=== PATIENT | male | born 1965 | race Caucasian/White ===

== ENCOUNTER 2021-03-23 16:53 | Emergency (ER) | payer BC ==
[~2021-03-23] VITALS: Ht 195.6 cm; Wt 81.0 kg
--- NOTE | 2021-03-23 17:12 | PHYS DOC ---
Past History Past Medical History: No Pertinent History Adult General Chief Complaint Chief Complaint: MECHANICAL FALL HPI HPI Patient is a 55-year-old male presenting for right lateral ankle pain. Onset was just prior to arrival. Was on the job, reports jumping off of a approximately 6 foot security fence and landing awkwardly on his right ankle suffering an inversion type injury as he thinks he landed on the stump of a tree. Did not hear any pops or cracks. Reported immediate pain to right lateral ankle and pain with weightbearing. Patient was ambulatory and able to call for help and be transported to our facility for evaluation. Reports focal sharp pain that is 10/10 in severity to right lateral ankle without radiation. Did not hit head, no loss of consciousness, no blood thinners, denies any significant medical issues or known diagnosed conditions. No changes in motor, sensory or neurologic function Review of Systems Review of Systems Fourteen body systems of review of systems have been reviewed. See HPI for pertinent positives and negative responses, other liang all other systems are negative, non-pertinent or non-contributory Physical Exam Physical Exam Constitutional: Well developed, well nourished, no acute distress, non-toxic appearance. HENT: Normocephalic, atraumatic, bilateral external ears normal, oropharynx moist, no oral exudates, nose normal. Eyes: PERRLA, EOMI, conjunctiva normal, no discharge. Neck: Normal range of motion, no tenderness, supple, no stridor. Cardiovascular: Heart rate regular per monitor Lungs & Thorax: No respiratory distress or accessory muscle use, bilateral chest rise Abdomen: Abdomen soft, non-tender, bowel sounds present in all quadrants, no guarding or rebound, nonacute abdomen. Skin: Warm, dry, no erythema, no rash. Back: No tenderness, no CVA tenderness. Extremities: Tenderness present to right lateral ankle with tenderness to palpation at right lateral malleolus and base of right fifth metatarsal with this soft tissue swelling over ATF ligaments, is able to bear weight but has antalgic gait due to pain, remaining work-up of right lower extremity involving hip, knee, soft tissue compartments of right goyal etc. unremarkable Neurologic: Alert and oriented X 3, grossly normal motor & sensory function, no focal deficits noted. Psychologic: Affect normal, judgement normal, mood normal. Current Patient Data Vital Signs Vital Signs Date Time Temp Pulse Resp B/P (MAP) Pulse Ox O2 Delivery O2 Flow Rate FiO2 03/23/21 17:21 16 99 Vital Signs Date Time Temp Pulse Resp B/P (MAP) Pulse Ox O2 Delivery O2 Flow Rate FiO2 03/23/21 17:21 16 99 EKG EKG [] Radiology/Procedures Radiology/Procedures EXAM: Right ankle and foot, 3 views. HISTORY: Pain. Inversion injury. COMPARISON: None. FINDINGS: 3 views of the right foot and ankle are obtained. There is no f racture, dislocation or subluxation. The ankle mortise intact. There is no osteochondral lesion. There is diffuse lateral predominant ankle soft tissue swelling. There is mild first metatarsal phalangeal joint spurring. There is a small calcification or foreign body along the lateral aspect of the forefoot. IMPRESSION: Lateral predominant ankle soft tissue swelling. No acute osseous finding. Electronically signed by: Dannielle Rivero MD (03/23/2021 5:22 PM) [id number] Heart Score C/O Chest Pain: No HEART Score for Chest Pain: HEART Score for Chest Pain Response (Comments) Value History Slighlty/Non-Suspicious 0 Age >45 - < 65 1 Total 1 Risk Factors: Risk Factors: DM, Current or recent (<one month) smoker, HTN, HLP, family history of CAD, obesity. Risk Scores: Risk Factors: DM, Current or recent (<one month) smoker, HTN, HLP, family history of CAD, obesity. Course & Med Decision Making Course & Med Decision Making Discussed with the patient all findings and diagnostic testing. I discussed most likely diagnosis of likely self-limiting musculoskeletal disease process such as strain/strain of right lateral ankle. I discussed no indication for further diagnostic work-up and/or intervention in ER setting. Continued supportive care and close outpatient follow-up advised. I stressed need for close outpatient follow-up to review today's ER visit. Strict return precautions were also discussed at length with good understanding by patient. Patient voiced understanding and agreement with the plan. Patient knows to come back for repeat evaluation if concerning signs or symptoms present prior to outpatient follow- up. Hemodynamically stable, ambulatory and well-appearing at time of disposition. Dragon Disclaimer Dragon Disclaimer This electronic medical record was generated, in whole or in part, using a voice recognition dictation system. Departure Departure: Impression: Primary Impression: Right ankle pain Disposition: HOME / SELF CARE / HOMELESS Condition: STABLE Patient Instructions: Ankle Exercises, Generic-SportsMed, RICE - Routine Care for Injuries Additional Instructions: You have been evaluated in the Emergency Department today for ankle pain. The x- ray of your ankle did not show any acute bony abnormalities. You can alternate Tylenol and/or Motrin every 4-6 hours to help control your pain. Please also rest, ice, and elevate your ankle to control your pain. Please follow up with your primary care physician as needed. If you do not have a primary doctor, you can call your insurance company to find one. If you do not have insurance, you can go to the finance/registration department for more assistance. Return to the Emergency Department if you experience worsening pain, numbness/tingling, change of color in your toes, or any other concerning symptoms. BOB HAYWOOD DO March 23, 2021 17:12
[2021-03-23] MEDS ORDERED: HYDROcodone/APAP 7.5/325MG 1 TAB TABLET ONE (17:19)
[2021-03-23] MEDS: HYDROcodone/APAP 7.5/325MG 1 TAB TABLET PO ONE (17:21)
--- NOTE | 2021-03-23 17:24 | RAD ---
EXAM: Right ankle and foot, 3 views. HISTORY: Pain. Inversion injury. COMPARISON: None. FINDINGS: 3 views of the right foot and ankle are obtained. There is no fracture, dislocation or subl uxation. The ankle mortise intact. There is no osteochondral lesion. There is diffuse lateral predomi nant ankle soft tissue swelling. There is mild first metatarsal phalangeal joint spurring. There is a small calcification or foreign body along the lateral aspect of the forefoot. IMPRESSION: Lateral predominant ankle soft tissue swelling. No acute osseous finding. Electronically signed by: Dannielle Rivero MD (03/23/2021 5:22 PM) [id number]
[2021-03-23 17:25] VITALS: BP 185/106
== END 2021-03-23 17:45 | disposition home or self-care (01) ==
LOC: ER 16:53
DX: M25.571 Pain in right ankle and joints of right foot (principal); R22.41 Localized swelling, mass and lump, right lower limb
CPT/HCPCS: 73610; 73630; 99284

== ENCOUNTER 2021-10-11 14:35 | Emergency (ER) | payer BC, OTHER ==
[~2021-10-11] VITALS: Ht 195.6 cm; Wt 82.0 kg
[2021-10-11] MEDS ORDERED: BUPIVACAINE MPF 0.25% 10 ML VIAL. IJ ONE (15:00)
[2021-10-11] MEDS ORDERED: LIDOCAINE 2% 20 ML VIAL. IJ ONE (15:00)
--- NOTE | 2021-10-11 15:09 | RAD ---
XR FINGER(S)_LEFT 2+VIEWS_RT History: Injury Comparison: None. Technique: AP and oblique views of the left hand with lateral view of the finger. Findings: Osseous mineralization is normal. No acute fracture or dislocaton. A tiny punctate metallic density p rojects in the soft tissues at the dorsal aspect of the left index finger at the level of the middle phalangeal base. There are mild degenerative changes of the interphalangeal and metacarpophalangeal j oints. No focal soft tissue swelling. Impression: 1. No acute osseous abnormality in the left hand. 2. Punctate metallic foreign body projecting at the level of the base of the index finger middle pha lanx dorsally. This may be superficial artifact or subcutaneous foreign body. Electronically signed by: Jose Almonte MD (10/11/2021 3:06 PM) [id number]
[2021-10-11 16:50] VITALS: BP 147/77
[2021-10-11] MEDS ORDERED: IBUP600T16 PO (16:51)
[2021-10-11] MEDS ORDERED: HYDR-2155 PO (16:51)
[2021-10-11] MEDS ORDERED: CEPH500C PO (16:51)
--- NOTE | 2021-10-11 16:52 | PHYS DOC ---
Past History Past Medical History: No Pertinent History Past Surgical History: No Surgical History Alcohol Use: Heavy General Adult EDM: Chief Complaint: FINGER INJURY HPI: HPI: Patient is a 56-year-old male that presents today with a laceration to his left hand fifth finger. Patient is left-hand dominant and works in a tire mounting job, patient states that he was working with a bobcat at work and he states he was moving it around and his finger got caught on a piece of equipment within the bobcat and he sustained a laceration to that area. Patient is able to extend and bend the finger he is limited due to pain, sensory intact distal to the injury no uncontrolled hemorrhaging noted Review of Systems: Review of Systems: Constitutional: Denies fever or chills Eyes: Denies change in visual acuity HENT: Denies nasal congestion or sore throat Respiratory: Denies cough or shortness of breath Cardiovascular: Denies chest pain or edema GI: Denies abdominal pain, nausea, vomiting, bloody stools or diarrhea : Denies dysuria Musculoskeletal: Laceration to left fifth finger Integument: Denies rash Neurologic: Denies headache, focal weakness or sensory changes Endocrine: Denies polyuria or polydipsia Lymphatic: Denies swollen glands Psychiatric: Denies depression or anxiety Current Medications: Current Meds: Current Medications Medications (Trade) Dose Ordered Sig/Lucien Start Time Stop Time Status Last Admin Dose Admin Bupivacaine HCl (Sensorcaine-Mpf 0.25%) 10 ml 1X ONCE 10/11/21 15:00 10/11/21 15:01 DC 10/11/21 15:05 10 ML Lidocaine HCl (Lidocaine 2%) 20 ml 1X ONCE 10/11/21 15:00 10/11/21 15:01 DC 10/11/21 14:56 20 ML Allergies: Allergies: Allergies Coded Allergies Type Severity Reaction Last Updated Verified No Known Drug Allergies 03/23/21 No Physical Exam: PE: Constitutional: Well developed, well nourished, no acute distress, non-toxic appearance. [] HENT: Normocephalic, atraumatic, bilateral external ears normal, oropharynx otilia st, no oral exudates, nose normal. [] Eyes: PERRLA, EOMI, conjunctiva normal, no discharge. [] Neck: Normal range of motion, no tenderness, supple, no stridor. [] Cardiovascular:Heart rate regular rhythm, no murmur [] Lungs & Thorax: Bilateral breath sounds clear to auscultation [] Abdomen: Bowel sounds normal, soft, no tenderness, no masses, no pulsatile masses. [] Skin: Warm, dry, no erythema, no rash. [] Back: No tenderness, no CVA tenderness. [] Extremities: Left fifth finger proximal to the tip, a Y-shaped laceration is noted approximately 3 cm x 1 cm, no uncontrolled hemorrhaging noted, patient's neurovascular intact distal to the injury. Neurologic: Alert and oriented X 3, normal motor function, normal sensory function, no focal deficits noted. [] Psychologic: Affect normal, judgement normal, mood normal. [] Current Patient Data: Vital Signs: Vital Signs Date Time Temp Pulse Resp B/P (MAP) Pulse Ox O2 Delivery O2 Flow Rate FiO2 10/11/21 14:40 98.5 95 20 180/106 (130) 96 EKG: EKG: [] Radiology/Procedures: Radiology/Procedures: REASON: INJURY PROCEDURE: FINGER(S) LEFT XR FINGER(S)_LEFT 2+VIEWS_RT History: Injury Comparison: None. Technique: AP and oblique views of the left hand with lateral view of the finger. Findings: Osseous mineralization is normal. No acute fracture or dislocaton. A tiny punctate metallic density projects in the soft tissues at the dorsal aspect of the left index finger at the level of the middle phalangeal base. There are mild degenerative changes of the interphalangeal and metacarpophalangeal joints. No focal soft tissue swelling. Impression: 1. No acute osseous abnormality in the left hand. 2. Punctate metallic foreign body projecting at the level of the base of the index finger middle phalanx dorsally. This may be superficial artifact or subcutaneous foreign body. Electronically signed by: Jose Almonte MD (10/11/2021 3:06 PM) [id number] Indication: Laceration to left fifth finger Procedure: Patient was placed in a sitting position left hand was cleansed by kobe huerta RN and copious amounts of irrigation was done approximately 1.5 L due to the dark on the patient's hand upon arrival. Digital block of lidocaine 2% with quarter percent bupivacaine completed, after finger is anesthetized 7 interrupted 4.0 Ethilon sutures were placed. Area was also debrided of any skin that was not viable. The patient tolerated the procedure well. Dressing of Adaptic, tube gauze, and an aluminum foam splint was placed on the patient. Total repaired wound length: 3 cm x 1 cm Complications: None Heart Score: C/O Chest Pain: N/A Risk Factors: Risk Factors: DM, Current or recent (<one month) smoker, HTN, HLP, family history of CAD, obesity. Risk Scores: Score 0 - 3: 2.5% MACE over next 6 weeks - Discharge Home Score 4 - 6: 20.3% MACE over next 6 weeks - Admit for Clinical Observation Score 7 - 10: 72.7% MACE over next 6 weeks - Early Invasive Strategies Course & Med Decision Making: Course & Med Decision Making Pertinent Labs and Imaging studies reviewed. (See chart for details) Dressing applied by nursing staff which included Adaptic, nonadherent dressing, tube gauze and an aluminumt splint. Patient is instructed to keep the current dressing in place for the next 24 hours remove gently, clean wound twice daily with antibacterial soap, pat dry do not rub, wear foam splint while at work and keep dressing in place while working due to the your employment. Have sutures removed in 7 to 10 days. Take antibiotics as directed Nicole Disclaimer: Dragon Disclaimer: This electronic medical record was generated, in whole or in part, using a voice recognition dictation system. Departure Departure: Impression: Primary Impression: Laceration of finger of left hand Qualified Codes: S61.217A - Laceration without foreign body of left little finger without damage to nail, initial encounter Disposition: 01 HOME / SELF CARE / HOMELESS Condition: STABLE Referrals: RANI BEDOLLA MD (PCP) Patient Instructions: Laceration Care, Adult Additional Instructions: Keep current dressing in place for the next 24 hours. Clean wound twice daily with mild antibacterial soap pat dry do not rub, keep laceration covered until fully healed or no drainage is noted. If you are working I would wear a glove over that area to avoid dirt getting into the wound. Foam aluminum splint to the finger to help protect the sutures. Make sure you do range of motion 2-3 times daily. Cephalexin 500 mg 4 times daily for 10 full days. Motrin 600 mg 1 tablet every 6 hours as needed for mild to moderate pain Hydrocodone 1 tablet every 6 hours as needed for moderate to severe pain Follow-up with your primary care physician or here in the emergency department for sutures out in 7 to 10 days. Return to the emergency department for increased pain, swelling, redness, warmth, or drainage from the wound. If you have any problems with sensation or you feel that there is concern with the wound please return to the emergency department. Scripts Ibuprofen (IBUPROFEN) 600 Mg Tablet 600 MG PO PRN Q6HRS PRN for PAIN, #30 TAB Prov: SRAVANI NOBLE SQUEEGEE FINISHER 10/11/21 Hydrocodone Bit/Acetaminophen (HYDROCODONE-APAP 5-325 ) 1 Each Tablet 1 TAB PO PRN Q6HRS PRN for PAIN, #14 TAB 0 Refills Prov: SRAVANI NOBLE SQUEEGEE FINISHER 10/11/21 Cephalexin (KEFLEX) 500 Mg Capsule 1 CAP PO QID for laceration, #40 CAP Prov: SRAVANI NOBLE SQUEEGEE FINISHER 10/11/21 SRAVANI NOBLE APRN Oct 11, 2021 16:52
== END 2021-10-11 17:00 | disposition home or self-care (01) ==
LOC: ER 14:35
DX: S61.217A Laceration without foreign body of left little finger without damage to nail, initial encounter (principal); F10.20 Alcohol dependence, uncomplicated; Y90.9 Presence of alcohol in blood, level not specified; W26.8XXA Contact with other sharp object(s), not elsewhere classified, initial encounter; Y93.89 Activity, other specified; Y92.89 Other specified places as the place of occurrence of the external cause; Y99.8 Other external cause status
CPT/HCPCS: 12002; 73140; 99283; J2001; J3490

== ENCOUNTER 2021-10-29 11:09 | Emergency (ER) | payer BC, OTHER ==
[~2021-10-29] VITALS: Ht 195.6 cm; Wt 82.0 kg
[~2021-10-29 11:09] MED LIST: CEPH500C PO; HYDR-2155 PO; IBUP600T16 PO
[2021-10-29 11:22] VITALS: BP 147/87
--- NOTE | 2021-10-29 11:39 | EKG ---
[address] [address] Test Date: 2021-10-29 Test Time: 11:30:49 Pat Name: SHAILA FRANCE Department: Room: Gender: M Refund Specialist: MATHEW : [id number] Requested By: ISACC TEE Order Number: [id number] Reading MD: Bharath Gil Measurements Intervals [place] Rate: 88 P: 59 TN: 148 QRS: 59 QRSD: 92 T: 62 QT: 356 QTc: 434 Interpretive Statements SINUS RHYTHM Electronically Signed On 10-30-2021 10:11:06 CHEMISTRY QUALITY CONTROL TECHNICIAN by Bharath Gil
[2021-10-29] MEDS ORDERED: IV NORMAL SALINE 1,000ML 1,000 ML IV ONE ×2 (11:45→13:00)
[2021-10-29] MEDS ORDERED: BENZONATATE 100 MG CAPSULE. PO ONE (11:45)
[2021-10-29] MEDS ORDERED: KETOROLAC 30 MG/ML VIAL. IVP ONE (11:45)
--- NOTE | 2021-10-29 11:59 | PHYS DOC ---
Past History Past Medical History: No Pertinent History Past Surgical History: No Surgical History Alcohol Use: Heavy Adult General Chief Complaint Chief Complaint: CONGESTION HPI HPI Patient is a 56-year-old male who presents to the emergency department chief complaint of cough and congestion for the past 3 weeks. Patient reports his work sent him home related to this cough. Patient denies fever or chills at home. Patient reports sternal chest discomfort with cough, denies chest pain or chest discomfort at rest. Patient reports he is a daily cigarette smoker, reports drinking 3-4 beers every day, denies illicit drug use, patient denies radiation of this pain stating it only hurts when he coughs, patient denies dizziness, syncopal or near syncopal episodes. Patient does report a clear thick sputum production with his cough, reports nasal congestion if he is outside working however denies nasal congestion when he is in warm climates, denies throat pain, denies shortness of breath. Patient denies fever or chills at home. Patient reports receiving the COVID-19 virus vaccination series, reports receiving a flu vaccination in the fall 2020, patient denies other physical complaints or physical concerns. Review of Systems Review of Systems 14 body systems of review of systems have been reviewed. See HPI for pertinent positives and negative responses, otherwise all other systems are negative, nonpertinent or noncontributory. Constitutional: Negative except as outlined in HPI above. Skin: Negative except as outlined in HPI above. Eyes: Negative except as outlined in HPI above. HENT: Negative except as outlined in HPI above. Respiratory: Negative except as outlined in HPI above. Cardiovascular: Negative except as outlined in HPI above. GI: Negative except as outlined in HPI above. : Negative except as outlined in HPI above. Musculoskeletal: Negative except as outlined in HPI above. Integument: Negative except as outlined in HPI above. Neurologic: Negative except as outlined in HPI above. Endocrine: Negative except as outlined in HPI above. Lymphatic: Negative except as outlined in HPI above. Psychiatric: Negative except as outlined in HPI above. Current Medications Current Medications Current Medications Medications (Trade) Dose Ordered Sig/Lucien Start Time Stop Time Status Last Admin Dose Admin Benzonatate (Tessalon Perle) 100 mg 1X ONCE 10/29/21 11:45 10/29/21 11:46 DC Ketorolac Tromethamine (Toradol 30mg Vial) 30 mg 1X ONCE 10/29/21 11:45 10/29/21 11:46 DC Sodium Chloride 1,000 ml @ 1,000 mls/hr 1X ONCE 10/29/21 11:45 10/29/21 12:44 Allergies Allergies Allergies Coded Allergies Type Severity Reaction Last Updated Verified No Known Drug Allergies 03/23/21 No Physical Exam Physical Exam Constitutional: Well developed, well nourished, no acute distress, non-toxic appearance. 56-year-old male in no apparent distress. HENT: Normocephalic, atraumatic. Oropharynx moist, pink, no deep tissue infectious process appreciated, no lymphadenopathy of the head or neck appreciated, bilateral nasal turbinates moist, pink, patent. No laryngeal edema, patient speaking in normal voice tones. Bilateral TMs within normal limits. Eyes: Conjunctiva normal, no discharge. Neck: Normal range of motion, no stridor. Cardiovascular: No cyanosis appreciated, distal cap refill less than 2 seconds. Lungs & Thorax: Patient is in no respiratory distress, no audible adventitious lung sounds appreciated. Lung sounds clear to auscultate all lung valdovinos, patient does have bronchial vesicular lung sounds with forced cough. Abdomen: Nontender, no abnormalities noted. Skin: Warm, dry, no erythema, no rash. Back: No tenderness, no deformities. Extremities: No tenderness, no cyanosis, no clubbing, ROM intact, no edema. Neurologic: Alert and oriented X 3, normal motor function, normal sensory function, no focal deficits noted. Psychologic: Affect normal, judgement normal, mood normal. Current Patient Data Vital Signs Vital Signs Date Time Temp Pulse Resp B/P (MAP) Pulse Ox O2 Delivery O2 Flow Rate FiO2 10/29/21 11:22 97.9 107 18 147/87 (107) 97 Room Air Lab Results Laboratory Tests Test 10/29/21 11:40 White Blood Count 4.9 x10^3/uL Red Blood Count 4.78 x10^6/uL Hemoglobin 15.9 g/dL Bedside Hemoglobin 17 gm/dL Hematocrit 46.5 % Bedside Hematocrit 50 % Mean Corpuscular Volume 97 fL Mean Corpuscular Hemoglobin 33 pg Mean Corpuscular Hemoglobin Concent 34 g/dL Red Cell Distribution Width 13.1 % Platelet Count 144 x10^3/uL Neutrophils (%) (Auto) 45 % Lymphocytes (%) (Auto) 39 % Monocytes (%) (Auto) 13 % Eosinophils (%) (Auto) 1 % Basophils (%) (Auto) 1 % Neutrophils # (Auto) 2.2 x10^3uL Lymphocytes # (Auto) 1.9 x10^3/uL Monocytes # (Auto) 0.6 x10^3/uL Eosinophils # (Auto) 0.1 x10^3/uL Basophils # (Auto) 0.0 x10^3/uL Bedside Sodium 128 mmol/L Bedside Potassium 4.1 mmol/L Bedside Chloride 91 mmol/L Bedside Total CO2 22 mmol/L Anion Gap 20 mmol/L Bedside Blood Urea Nitrogen < 3 mg/dL Bedside Creatinine 0.8 mg/dL Glucose Level 88 mg/dL Bedside Ionized Calcium (Noe) 1.04 mmol/L Bedside Troponin I 0.00 ng/ml Influenza Type A (Rapid) Negative Influenza Type B (Rapid) Negative SARS-CoV-2 Antigen (Rapid) Negative Current Medications Medications (Trade) Dose Ordered Sig/Lucien Route PRN Reason Start Time Stop Time Status Last Admin Dose Admin Benzonatate (Tessalon Perle) 100 mg 1X ONCE PO 10/29/21 11:45 10/29/21 11:46 DC 10/29/21 11:56 Ketorolac Tromethamine (Toradol 30mg Vial) 30 mg 1X ONCE IVP 10/29/21 11:45 10/29/21 11:46 DC 10/29/21 11:56 Sodium Chloride 1,000 ml @ 1,000 mls/hr 1X ONCE IV 10/29/21 11:45 10/29/21 12:44 DC 10/29/21 11:56 Sodium Chloride 1,000 ml @ 1,000 mls/hr 1X ONCE IV 10/29/21 13:00 10/29/21 13:59 10/29/21 13:00 EKG EKG EKG performed at 1130 by ED nursing staff shows a normal sinus rhythm without ectopy, UT interval 0.148, QTc interval 0.434, heart rate 88 bpm, no acute STEMI, no ACS, no acute ischemia appreciated, EKG interpreted by ED attending physician Dr. Corbett. Radiology/Procedures Radiology/Procedures REASON: cough congestion PROCEDURE: CHEST AP ONLY EXAMINATION: Chest radiograph. VIEWS: 1 COMPARISON: None INDICATION:56 years, Male, cough, congestion. FINDINGS: Normal cardiomediastinal silhouette. No focal consolidation. No pleural effusion or pneumothorax. No acute osseous process. IMPRESSION: No acute cardiopulmonary process. Electronically signed by: Stephanie Aguirre MD (10/29/2021 12:23 PM) [id number] Heart Score C/O Chest Pain: Yes HEART Score for Chest Pain: HEART Score for Chest Pain Response (Comments) Value History Slighlty/Non-Suspicious 0 ECG Normal 0 Age >45 - < 65 1 Risk Factors 1 or 2 Risk Factors 1 Troponin < Normal Limit 0 Total 2 Risk Factors: Risk Factors: DM, Current or recent (<one month) smoker, HTN, HLP, family history of CAD, obesity. Risk Scores: Risk Factors: DM, Current or recent (<one month) smoker, HTN, HLP, family history of CAD, obesity. Course & Med Decision Making Course & Med Decision Making Pertinent Labs and Imaging studies reviewed. (See chart for details) 56-year-old male, vital signs reviewed, presents to the emergency department concerning cough for the past 3 weeks. Physical examination concerning for bronchitis versus other acute pulmonary process, will order chest x-ray, COVID- 19 rapid and PCR testing, rapid flu A/B, CBC, CMP, troponin I, BNP pro NT. 1 L normal saline, chest x-ray, Tessalon Perle for cough. Chest x-ray unremarkable, patient's labs unremarkable, [facility] unable to perform CMP, BNP pro NT related to instruments are down for unknown period of time, patient's basic metabolic panel unremarkable except for hyponatremia. Rapid Covid testing and rapid flu testing negative, upon reevaluation of the patient found the patient in no apparent distress, in no respiratory distress, nontoxic in appearance, reports he feels much better, patient was given 2 L normal saline related to sodium of 128, this is most likely related to long history of alcoholism, however patient does state he feels 100% better and has not had a cough during his stay in the emergency department. Discussed with patient will diagnosed with bronchitis, will cover for underlying atypical pneumonia related to long history of cigarette smoking with azithromycin regimen, prescription for Tessalon Perle, discussed with patient smoking cessation, alcohol cessation, strict follow-up with primary care this week, return to ER precautions or concerns, patient gave verbal understanding of and is amenable to ED discharge planning. Discussed with the patient all findings and diagnostic testing as well as the need to follow-up with their primary care provider for further evaluation and treatment or return to the ED if any new or worsening symptoms. Strict return precautions were also discussed at length, the patient voiced understanding and agreement with the discharge planning. The patient was nontoxic in appearance, in no apparent distress, and hemodynamically stable at the time of disposition. Dragon Disclaimer Dragon Disclaimer This electronic medical record was generated, in whole or in part, using a voice recognition dictation system. Departure Departure: Impression: Primary Impression: Bronchitis Disposition: HOME / SELF CARE / HOMELESS Condition: GOOD Referrals: RANI BEDOLLA MD (PCP) Patient Instructions: Bronchitis Additional Instructions: You were seen today in the emergency department for a cough that has lasted for the past 3 weeks. Your chest x-ray did not show any concerning signs of pneumonia, your lab work did not show concerning signs of infectious process, your lab work did show signs of dehydration, you were given 2 L of normal saline in emergency department today, you are also given a Tessalon Perle medication for cough, as we discussed I am starting you on a antibiotic called azithromycin, this is related to your cigarette smoking, I encourage you to stop smoking, please follow-up with your primary care physician soon for ongoing symptoms, return to the emergency department for worsening symptoms or other concerns. Thank you for visiting our Emergency Department. It was a pleasure taking care of you today in the emergency department and we appreciate you trusting us with your care. If any additional problems come up don't hesitate to return to visit us. Please follow up with your primary care provider so they can plan additional care if needed and know about the problem that you had. If symptoms worsen come back to the Emergency Department. Any concerning symptoms that start such as chest pain, shortness of air, weakness or numbness on one side of the body, running high fevers or any other concerning symptoms return to the ER. EMERGENCY DEPARTMENT GENERAL DISCHARGE INSTRUCTIONS Thank you for coming to [facility] (ED) today and trusting us with you care. We trust that you had a positivie experience in our Emergency Department. If you wish to speak to the department management, you may call the director at [phone]. YOUR FOLLOW UP INSTRUCTIONS ARE FOLLOWS: 1. Do you have a private Doctor? If you do not have a private doctor, please ask for a resource list of physicians or clinics that may be able to assist you with follow up care. 2. The Emergency Physician has interpreted your x-rays. The X-Ray specialist will also review them. If there is a change in the findings, you will be notified in 48 hours when at all possible. 3. A lab test or culture has been done, your results will be reviewed and you will be notified if you need a change in treatment. ADDITIONAL INSTRUCTIONS AND INFORMATION: 1. Your care today has been supervised by a physician who is specially trained in emergency care. Many problems require more than one evaluation for a complete diagnosis and treatment. We recommend that you schedule your follow up appointment as recommended to ensure complete treatment of you illness or injury. If you are unable to obtain follow up care and continue to have a problem, or if your condition worsens, we recommend that you return to the ED. 2. We are not able to safely determine your condition over the phone nor are we able to give sound medical advice over the phone. For these safety reasons, if you call for medical advice we will ask you to come to the ED for further evaluation. 3. If you have any questions regarding these discharge instructions please call the ED at [phone]. SAFETY INFORMATION: In the interest of safety, wellness, and injury prevention; we encourage you to wear your sealbelt, if you smoke; quite smoking, and we encourage family to use a protective helmet for bicycling and other sporting events that present an increased risk for head injury. IF YOUR SYMPTOMS WORSEN OR NEW SYMPTOMS DEVELOP, OR YOU HAVE CONCERNS ABOUT YOUR CONDITION; OR IF YOUR CONDITION WORSENS WHILE YOU ARE WAITING FOR YOUR FOLLOW UP APPOINTMENT; EITHER CONTACT YOUR PRIMARY CARE DOCTOR, THE PHYSICIAN WHOSE NAME AND NUMBER YOU WERE GIVEN, OR RETURN TO THE ED IMMEDIATELY. Scripts Azithromycin (AZITHROMYCIN TABLET) 250 Mg Tablet 1 PKG PO UD for bronchitis for 5 Days, #6 TAB 0 Refills 2 the first day followed by 1 for days 2-5 Prov: ISACC [employer]EE [employer] 10/29/21 Benzonatate (BENZONATATE) 100 Mg Capsule 1 CAP PO TID for cough, #30 CAP 0 Refills Prov: ISACC [employer] 10/29/21 ISACC TEE APRN Oct 29, 2021 11:59
[2021-10-29 12:05] LABS: BASO % 1 % (0-3); EOS # 0.1 x10^3/uL (0.0-0.7); EOS % 1 % (0-3); HEMATOCRIT 46.5 % (39.0-53.0); HEMOGLOBIN 15.9 g/dL (13.0-17.5); LYMPH # 1.9 x10^3/uL (1.0-4.8); LYMPH % 39 % (24-48); MEAN CORPUSCULAR HEMOGLOBIN 33 pg (25-35); MEAN CORPUSCULAR HGB CONC 34 g/dL (31-37); MEAN CORPUSCULAR VOLUME 97 fL (79-100); MONO # 0.6 x10^3/uL (0.0-1.1); MONO % 13 % (0-9); NEUT # 2.2 x10^3uL (1.8-7.7); NEUT % 45 % (31-73); PLATELET COUNT 144 x10^3/uL (140-400); RED BLOOD COUNT 4.78 x10^6/uL (4.30-5.70); RED CELL DISTRIBUTION WIDTH 13.1 % (11.5-14.5); WHITE BLOOD COUNT 4.9 x10^3/uL (4.0-11.0)
--- NOTE | 2021-10-29 12:25 | RAD ---
EXAMINATION: Chest radiograph. VIEWS: 1 COMPARISON: None INDICATION:56 years, Male, cough, congestion. FINDINGS: Normal cardiomediastinal silhouette. No focal consolidation. No pleural effusion or pneumothorax. No acute osseous process. IMPRESSION: No acute cardiopulmonary process. Electronically signed by: Stephanie Aguirre MD (10/29/2021 12:23 PM) [id number]
[2021-10-29 12:27] LABS: POTASSIUM ISTAT 4.1 mmol/L (3.5-5.0); SODIUM ISTAT 128 mmol/L (135-145)
[2021-10-29 12:29] LABS: BUN ISTAT < 3 mg/dL (8-26); GLUCOSE ISTAT 88 mg/dL (60-99); HEMATOCRIT ISTAT 50 %; HEMOGLOBIN ISTAT 17 gm/dL
[2021-10-29 12:40] LABS: INFLUENZA A PATIENT NEGATIVE (NEGATIVE); INFLUENZA B PATIENT NEGATIVE (NEGATIVE)
[2021-10-29] MEDS ORDERED: AZIT250T6 PO (13:59)
[2021-10-29] MEDS ORDERED: BENZ-8 PO (13:59)
[2021-10-29 15:45] LABS: PLT ESTIMATE ADEQUATE (ADEQUATE)
[2021-10-29 18:29] LABS: CALCIUM 8.7 mg/dL (8.5-10.1); CREATININE 0.7 mg/dL (0.7-1.3); GFR 117.1; POTASSIUM 4.3 mmol/L (3.5-5.1)
[2021-10-29 18:41] LABS: ALBUMIN 3.9 g/dL (3.4-5.0); TOTAL BILIRUBIN 0.6 mg/dL (0.2-1.0); TOTAL PROTEIN 7.9 g/dL (6.4-8.2)
== END 2021-10-29 14:05 | disposition home or self-care (01) ==
LOC: ER 11:09
DX: U07.1 COVID-19 (principal); J40 Bronchitis, not specified as acute or chronic
CPT/HCPCS: 71045; 80047; 80053; 83880; 84484; 85025; 87426; 87804; 93005; 96361; 96374; 99285; C9803; J1885; J7030; U0003